=== PATIENT | male | born 1965 | race Caucasian/White ===

== ENCOUNTER 2021-05-05 07:31 | Emergency (ER) | payer MEDICAID, SELFPAY ==
[2021-05-05 07:33] VITALS: BP 185/120; PULSE 84; RESP 16; TEMP 36.6; O2SAT 98; BMI 22.6
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
--- NOTE | 2021-05-05 08:22 | RAD_ITS ---
STUDY: X-RAY - LEFT FOOT CLINICAL: Male, 55 years old. Trauma. TECHNIQUE: 3 view(s) of the foot. COMPARISON: None. FINDINGS: Acute dorsal talus and navicular avulsion fractures (best seen on the lateral projection). Acute obliquely oriented comminuted minimally displaced fractures at the third, fourth and fifth metatarsals. Acute nondisplaced cuboid fracture. 2 mm subluxation at the region of the second tarsometatarsal joint. No yuly dislocation. No acute cortical destruction. Flexed third, fourth and fifth distal interphalangeal joints. Moderate midfoot soft tissue swelling. RAD/Foot min 3 Views IMPRESSION: Acute dorsal talus and navicular avulsion fractures Acute minimally displaced third, fourth and fifth metatarsal fractures Acute nondisplaced cuboid fracture Second tarsometatarsal 2 mm subluxation (correlate midfoot instability and consider CT/MRI evaluations) Moderate midfoot swelling Electronically Signed: Booker Alonso DO at 8:45 EDT Tel , Service support ,
--- NOTE | 2021-05-05 10:21 | NURSING ---
[address] DR MONTAÑO PAGED
--- NOTE | 2021-05-05 10:44 | CT_ITS ---
STUDY: CT LEFT FOOT REASON FOR EXAM: Male, 55 years old. Multiple foot fractures RADIATION DOSAGE (If Supplied By Facility): CTDIvol = ( 15.35 ) mGy, DLP = ( 353.76 ) mGycm TECHNIQUE: Thin section transaxial imaging of the foot was obtained, with sagittal and coronal reconstructed images. Individualized dose optimization techniques were used for this CT. COMPARISON: Comparison is made with prior radiographs done earlier today. FINDINGS: There is evidence of a tiny avulsion fracture along the dorsal aspect of the anterior talus and navicular bone. There is evidence of a plantar spur. Nondisplaced fracture along the posterior aspect of the cuboid bone. Normal visualized tibiotalar, subtalar, talonavicular, calcaneocuboid, tarsal and tarsometatarsal articulations. Nondisplaced, fracture of the proximal and midportion of the fourth metatarsal as well as nondisplaced oblique fracture of the midportion of the third metatarsal. Nondisplaced transverse fracture at the base of the fifth metatarsal. Normal metatarsophalangeal joint of the great toe. Normal tibial and fibular sesamoid bones. Normal interphalangeal joint of the great toe. Normal phalanges of the great toe. Normal second through fifth metatarsophalangeal joints. Normal interphalangeal joints and phalanges of the lesser toes. Soft tissue swelling. CT/Extremity Lower without Contra IMPRESSION: Fractures of the third fourth and fifth metatarsals as described. Tiny avulsion fracture along the dorsal aspect of the anterior talus and navicular bone. Nondisplaced fracture of the cuboid bone. Electronically Signed: Braxton Quintana MD at 11:06 EDT , Service support ,
[2021-05-05 11:16] VITALS: BP 148/69; PULSE 84; RESP 15; O2SAT 95
== END 2021-05-05 11:17 | disposition home or self-care (01) ==
PROVIDERS: Emergency Provider Emergency Medicine; PCP Internal Medicine
DX: S92.902A Unspecified fracture of left foot, initial encounter for closed fracture (principal); F17.210 Nicotine dependence, cigarettes, uncomplicated; X58.XXXA Exposure to other specified factors, initial encounter
CPT/HCPCS: 73630; 73700; 99285

== ENCOUNTER 2021-12-14 19:25 | Emergency (ER) | payer MEDICAID, SELFPAY ==
[2021-12-14 19:25] VITALS: BP 166/98; PULSE 97; RESP 19; TEMP 36.7; O2SAT 98; BMI 23.3
--- NOTE | 2021-12-14 19:32 | EDS_ITS ---
HPI History of Present Illness Chief Complaint: Overdose Informant: patient Onset/Context/Timing Onset: Today Context: Sudden Onset Quality: Unresponsive Location: Generalized Worsened by: Nothing Relieved by: Narcan Associated Symptoms Associated Symptoms: Negative for vomiting*, diarrhea*, fever*, rash*, seizure, tremor, palpatations, suicidal ideation and homicidal ideation Narrative Narrative: Patient presents after overdose of heroin tonight. Patient states this occurred approximately 1 hour prior to arrival. Patient states he uses between $10 and $20 of heroin per day. EMS administered Narcan which helped. Patient denies any nausea or vomiting. Patient denies any diarrhea. Patient denies any fevers or chills. Patient denies any seizures. Patient denies any suicidal or homicidal ideations. Patient denies any chest pain or shortness of breath. [facility] Medical History Anxiety Depression GERD (gastroesophageal reflux disease) Heroin abuse Methamphetamine abuse Smoker Substance abuse Home Medications omeprazole 40 mg PO DAILY 12/14/21 [History Last Taken Unknown] Allergy/AdvReac Type Severity Reaction Status Date / Time No Known Allergies Allergy Verified 12/14/21 19:30 Surgical History H/O neck surgery Social History Smoking Status: Current every day smoker tobacco type: cigarettes ROS ROS ED Constitutional Constitutional ED: Denies chills or fever(s) Eyes Eyes: Denies blurry vision or change in vision ENT ENT ED: Denies rhinorrhea or sore throat Cardiovascular Cardiovascular: Denies chest pain or palpitations Respiratory/Chest Respiratory/Chest: Denies cough or dyspnea Gastrointestinal Gastrointestinal: Denies nausea or vomiting Genitourinary Genitourinary ED: Denies dysuria or hematuria Musculoskeletal Musculoskeletal: Reports back pain; Denies neck pain Integumentary Denies abscess or rash Neurologic Neurologic: Denies headache(s) or weakness Allergic/Immunologic Allergic/Immunologic ED: Denies mouth swelling or urticaria EXAM Physical Exam Const Vital Signs: 12/14/21 19:25 12/14/21 20:25 12/14/21 20:53 Temperature 98.1 F Temperature Source Temporal Pulse Rate 97 61 58 L Respiratory Rate 19 H 19 H 17 Blood Pressure 166/98 H 147/89 H 144/87 H Blood Pressure Mean 120 108 106 Pulse Ox 98 98 98 Oxygen Delivery Method Room Air Room Air Room Air Positive well nourished and well developed General Appearance ED: well developed and NAD HEENT Reports moist mucous membranes Neck supple and no JVD Chest Wall inspection of chest normal and palpation of chest normal Resp normal respiratory effort and clear to auscultation bilaterally Cardio regular rate and regular rhythm GI soft to palpation, non-tender, non-distended and no masses Neuro oriented x3, CN's II-XII intact bilaterally and no sensory deficits noted Sensorium / Orientation: alert Motor Exam: strength 5/5 throughout Psych mental status grossly normal, denies hallucinations, denies homicidal ideation and denies suicidal ideation MDM MDM MDM Narrative Medical decision making narrative: Portable 1 view chest x-ray was obtained. On my interpretation, lung torre are clear. There is normal cardiac silhouette. Bony thorax is normal. There is no acute process noted. Radiologist also interpreted the x-ray and agrees. CBC and comprehensive metabolic profile were obtained and were within normal limits. Patient was observed here in the emergency department for over 2 hours. Patient had no further episodes of hypoxia or respiratory depression. Patient was advised of his findings. Patient was given a referral for 180. Patient was also instructed to follow-up with his primary care physician in 5 to 7 days for reevaluation. Patient understood and was agreeable with the plan. All questions were answered. Lab Data Attestation: I reviewed the patient's lab results. Labs: Laboratory Results - last 24 hr 12/14/21 12/14/21 19:47 19:47 WBC 5.5 RBC 4.94 Hgb 13.9 Hct 41.6 MCV 84.2 MCH 28.1 MCHC 33.4 RDW Std Deviation 39.4 RDW Coeff of Arnulfo 12.9 Plt Count 289 MPV 9.1 Immature Gran % (Auto) 0.200 Neut % (Auto) 47.5 Lymph % (Auto) 37.5 [place] % (Auto) 10.1 H Eos % (Auto) 3.4 Baso % (Auto) 1.3 H Absolute Neuts (auto) 2.6 Absolute Lymphs (auto) 2.07 Nucleated RBC % 0 Sodium 140 Potassium 3.7 Chloride 106 Carbon Dioxide 29.0 Anion Gap 5 BUN 12 Creatinine 0.72 Estim Creat Clear Calc 98.47 Est GFR (MDRD) Af Amer 145 Est GFR (MDRD) Non-Af 120 BUN/Creatinine Ratio 16.7 Glucose 112 H Calcium 8.9 Total Bilirubin 0.30 AST 28 ALT 44 Alkaline Phosphatase 75 Total Protein 7.3 Albumin 3.5 Globulin 3.8 Albumin/Globulin Ratio 0.9 Radiography Diagnostic Testing: Clinical Impression(s) from Imaging Studies Chest X-Ray 12/14/21 19:53 IMPRESSION: No acute radiographic abnormalities. Electronically Signed: Jono Man MD at 20:04 EDT , Discharge Plan Triage Chief Complaint: Overdose ED Provider: Booker Cruz Dx/Rx/DC Orders Clinical Impression: Opiate overdose, Opiate abuse, continuous Instructions: ED Opiate Abuse, ED Overdose, Opiate Prescriptions: No Action omeprazole 40 mg capsule,delayed release(DR/EC) 40 mg PO DAILY RF: 0 Primary Care Provider: Allison Jane Referrals: Allison Jane MD [Primary Care Provider] - 3-5 Days [facility] [STAFF PHYSICIAN] - 3-5 Days Disposition Disposition: Home, Self Care
--- NOTE | 2021-12-14 19:53 | RAD_ITS ---
INDICATION: Dyspnea EXAMINATION/TECHNIQUE: X-RAY - XR Chest 1 View COMPARISON: None. FINDINGS: The lungs are clear. Tortuous and calcified thoracic aorta. The heart is not enlarged. No pleural effusion or pneumothorax. Degenerative changes of the thoracic spine. RAD/Chest 1 View (Portable) IMPRESSION: No acute radiographic abnormalities. Electronically Signed: Jono Man MD at 20:04 EDT ,
[2021-12-14 19:55] LABS: Absolute Lymphocyte Count 2.07 X10^3/uL (0.83-4.51); Absolute Neutrophil Count 2.6 X10^3/uL (2.0-7.7); Basophil# 0.07 X10^3/uL; Basophil% 1.3 % (0-1); Eosinophil# 0.19 X10^3/uL; Eosinophils% 3.4 % (0-5); Hematocrit 41.6 % (40-54); Hemoglobin 13.9 g/dL (13.0-16.5); Lymphocyte # 2.07 X10^3/ul (0.83-4.51); Lymphocyte % 37.5 % (19-41); Mean Corp Hgb Conc 33.4 g/dL (32-36); Mean Corpuscular Hgb 28.1 pg (27.0-32.0); Mean Corpuscular Volume 84.2 fL (80-94); Mean Platelet Vol. 9.1 fl (6.2-12.0); Monocyte# 0.56 X10^3/uL; Monocyte% 10.1 % (0-10); NRBC Flagged by Analyzer 0 % (0-5); Neutrophil # 2.62 X10^3/uL (2.7-7.7); Neutrophil % 47.5 % (47-70); Platelet Count 289 K/mm3 (150-450); RBC Distribution Width CV 12.9 % (11.6-14.6); RBC Distribution Width SD 39.4 fl (35.1-43.9); Red Blood Count 4.94 M/mm3 (4.6-6.2); White Blood Count 5.5 K/mm3 (4.4-11.0)
[2021-12-14 20:25] VITALS: BP 147/89; PULSE 61; RESP 19; O2SAT 98
[2021-12-14 20:27] LABS: ALB/GLOB Ratio 0.9 RATIO (0.9-2.4); AST(SGOT) 28 U/L (15-37); Alanine Aminotransfer ALT/SGPT 44 U/L (16-61); Albumin, Serum 3.5 g/dL (3.2-5.0); Alkaline Phosphatase 75 U/L (45-117); Anion Gap 5 (5-15); BUN 12 mg/dL (7-18); BUN/Creat Ratio 16.7 RATIO (10-20); Calcium,Total 8.9 mg/dL (8.5-10.1); Chloride 106 mmol/L (98-107); Creatinine, Serum 0.72 mg/dL (0.70-1.30); EST Glomerular Filtration Rate 120 mL/min (>60); Est Glom Filt Rate - Afr Amer 145 mL/min (>60); Estimated Creatinine Clearance 98.47 ml/min; Globulin 3.8 g/dL (2.2-4.2); Glucose 112 mg/dL (74-106); Potassium 3.7 mmol/L (3.5-5.1); Protein, Total 7.3 g/dL (6.4-8.2); Sodium Level 140 mmol/L (136-145)
[2021-12-14 20:53] VITALS: BP 144/87; PULSE 58; RESP 17; O2SAT 98
[2021-12-14 21:41] VITALS: O2SAT 100
== END 2021-12-14 21:42 | disposition home or self-care (01) ==
PROVIDERS: Emergency Provider Emergency Medicine; PCP Internal Medicine; Visit Provider Emergency Medicine
DX: T40.1X1A Poisoning by heroin, accidental (unintentional), initial encounter (principal); F11.10 Opioid abuse, uncomplicated; F17.210 Nicotine dependence, cigarettes, uncomplicated; Z79.899 Other long term (current) drug therapy
CPT/HCPCS: 71045; 80053; 85025; 99285

== ENCOUNTER 2021-12-18 11:15 | Observation (INO) | payer MEDICAID, SELFPAY ==
[2021-12-18 11:15] VITALS: BP 135/85; PULSE 84; RESP 16; TEMP 37.1; O2SAT 100; BMI 21.7
[2021-12-18 12:03] LABS: Absolute Lymphocyte Count 0.43 X10^3/uL (0.83-4.51); Absolute Neutrophil Count 3.6 X10^3/uL (2.0-7.7); Basophil# 0.04 X10^3/uL; Eosinophil# 0.02 X10^3/uL; Eosinophils% 0.5 % (0-5); Hematocrit 44.2 % (40-54); Hemoglobin 14.8 g/dL (13.0-16.5); Lymphocyte # 0.43 X10^3/ul (0.83-4.51); Lymphocyte % 10.3 % (19-41); Mean Corp Hgb Conc 33.5 g/dL (32-36); Mean Corpuscular Volume 83.7 fL (80-94); Mean Platelet Vol. 9.2 fl (6.2-12.0); Monocyte# 0.03 X10^3/uL; Monocyte% 0.7 % (0-10); NRBC Flagged by Analyzer 0 % (0-5); Neutrophil # 3.63 X10^3/uL (2.7-7.7); Neutrophil % 87.3 % (47-70); POSITIVE DIFFERENTIAL YES; Platelet Count 249 K/mm3 (150-450); RBC Distribution Width CV 12.9 % (11.6-14.6); RBC Distribution Width SD 39.3 fl (35.1-43.9); Red Blood Count 5.28 M/mm3 (4.6-6.2); White Blood Count 4.2 K/mm3 (4.4-11.0)
[2021-12-18 12:07] LABS: Differential Indicated SCAN CRITERIA MET
[2021-12-18 12:21] LABS: ALB/GLOB Ratio 0.8 RATIO (0.9-2.4); AST(SGOT) 41 U/L (15-37); Alanine Aminotransfer ALT/SGPT 50 U/L (16-61); Albumin, Serum 3.5 g/dL (3.2-5.0); Alkaline Phosphatase 84 U/L (45-117); Anion Gap 7 (5-15); BUN 10 mg/dL (7-18); BUN/Creat Ratio 15.8 RATIO (10-20); Calcium,Total 9.1 mg/dL (8.5-10.1); Chloride 105 mmol/L (98-107); Creatinine, Serum 0.63 mg/dL (0.70-1.30); EST Glomerular Filtration Rate 139 mL/min (>60); Est Glom Filt Rate - Afr Amer 168 mL/min (>60); Estimated Creatinine Clearance 108.14 ml/min; Globulin 4.2 g/dL (2.2-4.2); Glucose 103 mg/dL (74-106); Potassium 3.3 mmol/L (3.5-5.1); Protein, Total 7.7 g/dL (6.4-8.2); Sodium Level 138 mmol/L (136-145)
[2021-12-18 12:33] LABS: Alcohol, Blood (Medical)-Serum < 3.0 mg/dL
[2021-12-18 12:34] LABS: Differential Comment SCANNED
--- NOTE | 2021-12-18 12:38 | EDS_ITS ---
HPI History of Present Illness Chief Complaint: Substance Abuse Narrative Narrative: 56-year-old male presenting for opioid detox. He states he uses fentanyl and heroin. He also states at times he uses methamphetamine. Patient does not use alcohol. He states his last use was yesterday. He states currently he feels kind of rundown and cold. He states he has a past medical history of high blood pressure and GERD. [facility] Medical History Anxiety Depression GERD (gastroesophageal reflux disease) Heroin abuse Methamphetamine abuse Smoker Substance abuse Home Medications omeprazole 40 mg capsule,delayed release 40 mg PO DAILY stomach 12/14/21 [History Last Taken 12/16/21] bupropion HCl 150 mg 24 hr tablet, extended release 150 mg PO DAILY depression 12/18/21 [History Last Taken Unknown] gabapentin 300 mg capsule 300 mg PO TIDCM nerve pain 12/18/21 [History Last Taken 12/17/21] Allergy/AdvReac Type Severity Reaction Status Date / Time No Known Allergies Allergy Verified 12/18/21 13:18 Surgical History H/O neck surgery Social History Smoking Status: Current every day smoker tobacco type: cigarettes ROS ROS ED Constitutional Constitutional ED: Reports chills; Denies fever(s) or sweats Eyes Eyes: Denies blurry vision or change in vision ENT ENT ED: Denies ear pain or sore throat Cardiovascular Cardiovascular: Denies chest pain, palpitations or racing heartbeat Respiratory/Chest Respiratory/Chest: Denies cough, dyspnea or sputum Gastrointestinal Gastrointestinal: Denies abdominal pain, constipation, diarrhea, nausea or vomiting Genitourinary Genitourinary ED: Denies dysuria, hematuria or urinary frequency Musculoskeletal Musculoskeletal: Denies arthralgias, myalgias or neck pain Integumentary Denies abscess, Abrasions or rash Neurologic Neurologic: Denies headache(s), paresthesias or weakness Psychiatric Psychiatric: Denies anxiety, depression, suicidal ideation or suicidal thoughts Endocrine Endocrinology: Denies polydipsia or polyuria EXAM Physical Exam Const Vital Signs: 12/18/21 11:15 Temperature 98.7 F Temperature Source Temporal Pulse Rate 84 Respiratory Rate 16 Blood Pressure 135/85 H Blood Pressure Mean 101 Pulse Ox 100 Oxygen Delivery Method Room Air Positive well nourished and no apparent distress General Appearance ED: active and cooperative HEENT Reports normocephalic and head/scalp atraumatic normocephalic Eyes PERRL and EOMs intact bilaterally Pupil: PERRL and accommodation reflex normal Neck full ROM General: normal visual inspection Chest Wall inspection of chest normal Resp normal respiratory effort and normal air movement Auscultation: clear to auscultation bilaterally Cardio regular rate and regular rhythm GI normal to inspection, nondistended, normoactive bowel sounds Rectal Exam: deferred Extremity normal to inspection Neuro oriented x3, CN's II-XII intact bilaterally, moves all extremities, no focal motor deficits and no sensory deficits noted Sensorium / Orientation: awake, alert, oriented to person, oriented to place and oriented to time Motor Exam: strength 5/5 throughout Psych mental status grossly normal and thought process normal Appearance: grossly normal Attitude: calm Speech: normal speech Thought Content: normal thought content Skin no rashes or lesions noted MDM MDM MDM Narrative Medical decision making narrative: Patient presenting for opioid detox. He states that he feels somewhat rundown and feels like he is cold currently. Last use of drugs was yesterday. CBC shows that he is leukopenic and lymphopenic. This is new from his previous visit on the . He slightly hypokalemic on his CMP. LFTs within normal limits with exception of an AST of 41. EtOH negative. I did send for a COVID test. I spoke with the hospitalist for admission for opioid detox. He will be transferred when a bed was available. Impression: 1. Opioid abuse 2. Presentation for opioid detox 3. Leukopenia 4. Lymphopenia 5. Hypokalemia Lab Data Attestation: I reviewed the patient's lab results. Labs: Laboratory Results - last 24 hr 12/18/21 12/18/21 12/18/21 11:45 11:45 11:45 WBC 4.2 L RBC 5.28 Hgb 14.8 Hct 44.2 MCV 83.7 MCH 28.0 MCHC 33.5 RDW Std Deviation 39.3 RDW Coeff of Arnulfo 12.9 Plt Count 249 MPV 9.2 Immature Gran % (Auto) 0.200 Neut % (Auto) 87.3 H Lymph % (Auto) 10.3 L [place] % (Auto) 0.7 Eos % (Auto) 0.5 Baso % (Auto) 1.0 Absolute Neuts (auto) 3.6 Absolute Lymphs (auto) 0.43 L Nucleated RBC % 0 Differential Comment SCANNED Diff Path Review October Sodium 138 Potassium 3.3 L Chloride 105 Carbon Dioxide 26.0 Anion Gap 7 BUN 10 Creatinine 0.63 L Estim Creat Clear Calc 108.14 Est GFR (MDRD) Af Amer 168 Est GFR (MDRD) Non-Af 139 BUN/Creatinine Ratio 15.8 Glucose 103 Calcium 9.1 Total Bilirubin 0.70 AST 41 H ALT 50 Alkaline Phosphatase 84 Total Protein 7.7 Albumin 3.5 Globulin 4.2 Albumin/Globulin Ratio 0.8 L Ethyl Alcohol < 3.0 Discharge Plan Disposition Disposition: Acute Care Hospital [facility] Discharge Date/Time: 12/18/21 12:57
[2021-12-18 12:47] VITALS: BP 146/86; PULSE 84; RESP 16; TEMP 36.7; O2SAT 100
[2021-12-18 13:16] VITALS: BMI 21.1
--- NOTE | 2021-12-18 13:39 | HP.PCM.HOS_ITS ---
[facility] - General General Date of Admission: 12/18/21 Date of Service: 12/18/21 Chief Complaint: Severe opioid withdrawal syndrome. HPI Narrative CALDERON PRIETO, is a 56 M came to ED for severe opioid alcohol withdrawal symptoms shaking, tremors, restlessness, cold/snuffles, generalized muscle ache, tossing on the bed. Patient states he uses IV fentanyl, 1/4 to 1/2 g with heroin mixed with methamphetamine. His last use was yesterday. Patient uses cocktail therefore unclear what is its content. Not sure about mixed crack cocaine, ecstasy or bath salts. Smokes cigarettes half pack per day. Patient also having weird thoughts, delusions, disorganized thought and behavior suggestive of psychotic symptoms. Denies hallucination auditory visual or tactile. NO Illusion. Denies suicidal ideation thought or attempt. No homicidal thoughts. Detailed history not obtainable as patient having severe withdrawal symptoms. [facility] Medical History (Updated 12/18/21 @ 13:[address] Braydon Ribera MD) Anxiety Depression GERD (gastroesophageal reflux disease) Heroin abuse Methamphetamine abuse Smoker Substance abuse Home Medications omeprazole 40 mg capsule,delayed release 40 mg PO DAILY stomach 12/14/21 [History Last Taken 12/16/21] bupropion HCl 150 mg 24 hr tablet, extended release 150 mg PO DAILY depression 12/18/21 [History Last Taken Unknown] gabapentin 300 mg capsule 300 mg PO TIDCM nerve pain 12/18/21 [History Last Taken 12/17/21] Allergy/AdvReac Type Severity Reaction Status Date / Time No Known Allergies Allergy Verified 12/18/21 13:18 Surgical History (Updated 12/18/21 @ 13:31 by Odette Brooks) H/O hernia repair H/O neck surgery Social History Smoking Status: Current every day smoker tobacco type: cigarettes ROS ROS Narrative 14 ROS are limited due to severe withdrawal symptoms including disorganized thought, restlessness tossing on the bed. Constitutional: Generalized muscle aches and pain. HEENT: Cold symptoms, runny nose. Reports systems reviewed and no addt'l complaints, except as documented Respiratory/Chest: Denies chest pain, shortness of breath at rest or with exertion Gastrointestinal: Denies coffee ground emesis, hematemesis or vomiting Genitourinary: Denies burning urination Musculoskeletal: Diffuse muscle aches and joint pain. Neurologic: Denies seizure-like activity. Psychiatric: Disorganized thought, restlessness, impulsiveness. skin: No ulcer. No rash Endocrinology: Reports systems reviewed and no addt'l complaints, except as documented Hematologic/Lymphatic: Reports systems reviewed and no addt'l complaints, except as documented Rest 14 ROS are negative except as mentioned in HPI Vital Signs Vital Signs Vital Signs: 12/18/21 11:15 12/18/21 12:47 Temperature 98.7 F 98.1 F Temperature Source Temporal Oral Pulse Rate 84 84 Respiratory Rate 16 16 Blood Pressure 135/85 H 146/86 H Blood Pressure Mean 101 106 Pulse Ox 100 100 Oxygen Delivery Method Room Air Room Air Weight Weight: 126 lb 12.253 oz Body Mass Index (BMI) 21.1 Physical Exam Narrative General: Awake, hyperalert, disoriented. Crawled in position. BMI 21.1 kg/min risk HEENT: Atraumatic, PERRLA, EOMI, Normocephalic Oral: Oral mucosa dry. No Gingival or Mucosal Lesions/ Ulcerations Neck: Supple, No JVD, Negative Carotid Bruits Lungs: Air entry diminished in bilateral lung bases. No crepitation/rhonchi Cardiovascular: Regular rate, Regular Rhythm, Normal S1, Normal S2, No murmurs Abdomen: Bowel Sounds Present, Soft, Non Tender, Non-Distended : No renal angle tenderness. No suprapubic tenderness. Extremities: No edema, Capillary Refill Less than 3 Seconds Skin: No rashes, No breakdown Musculoskeletal: Diffuse muscle tenderness. Moderate muscle atrophy of extremities. Neurological: Cranial nerves II-XII grossly intact, DTR 2+/4 Psych/Mental Status: Restless. Disorganized thought, pressured speech Results Lab / Micro Data Result Diagrams: 12/18/21 11:45 12/18/21 11:45 Labs: Laboratory Results - last 24 hr 12/18/21 11:45: WBC 4.2 L, RBC 5.28, Hgb 14.8, Hct 44.2, MCV 83.7, MCH 28.0, MCHC 33.5, RDW Std Deviation 39.3, RDW Coeff of Arnulfo 12.9, Plt Count 249, MPV 9.2, Immature Gran % (Auto) 0.200, Neut % (Auto) 87.3 H, Lymph % (Auto) 10.3 L, [place] % (Auto) 0.7, Eos % (Auto) 0.5, Baso % (Auto) 1.0, Absolute Neuts (auto) 3.6, Absolute Lymphs (auto) 0.43 L, Nucleated RBC % 0, Differential Comment SCANNED, Diff Path Review October foll 12/18/21 11:45: Sodium 138, Potassium 3.3 L, Chloride 105, Carbon Dioxide 26.0, Anion Gap 7, BUN 10, Creatinine 0.63 L, Estim Creat Clear Calc 108.14, Est GFR (MDRD) Af Amer 168, Est GFR (MDRD) Non-Af 139, BUN/Creatinine Ratio 15.8, Glucose 103, Calcium 9.1, Total Bilirubin 0.70, AST 41 H, ALT 50, Alkaline Phosphatase 84, Total Protein 7.7, Albumin 3.5, Globulin 4.2, Albumin/Globulin Ratio 0.8 L 12/18/21 11:45: Ethyl Alcohol < 3.0 Micro: Microbiology 12/18/21 12:47 Nasal Secretion SARS-CoV-2 Antigen (Rapid) - Final Assessment & Plan Assessment/Plan (1) Acute hyperactive opioid withdrawal delirium: PLAN: 1. Acute opioid withdrawal syndrome with history of chronic opioid use, dependence and tolerance: Patient is being admitted on Med[facility]. Watch for seizure, hallucinations or other psychotic symptoms. CINA and COW monitoring. Started on buprenorphine along with other adjunctive medications as needed for symptom control as per protocol. Needs close monitoring. 2. Methamphetamine use and dependence: Patient is mixed with IV fentanyl and heroin. 3. Chronic smoking cigarettes with nicotine dependence: On nicotine patch Patient advised cessation of opioids, methamphetamine and cigarette smoking. 4. Anxiety and depression: Patient on Wellbutrin at home. Will hold it as it lowers the threshold of seizure. 5. GERD: Started on PPI VTE prophylaxis, moderate risk Eliquis 2.5 mg p.o. twice daily Patient is not in the right mental state to talk about advanced directive. Patient is also high risk for viral hepatitis B, C and HIV. Patient is not in normal mental state to talk about history. Patient needs testing for viral hepatitis and HIV as an outpatient. Charges/Coding Visit Charges Inpatient E&M: 56789 Init Hosp L3
[2021-12-18 13:42] VITALS: BP 107/88; PULSE 84; RESP 18; TEMP 36.9; O2SAT 99
[2021-12-18] MEDS: Methocarbamol 750 MG Tablet 1500 MG PO (13:52)
[2021-12-18] MEDS: Gabapentin 300 MG Capsule PO ×2 (13:52→17:13)
[2021-12-18] MEDS: Pantoprazole Sodium 40 MG Tablet PO (13:52)
[2021-12-18] MEDS: Buprenorphine HCl 2 MG TAB.SUBL SL ×2 (14:09→22:30)
[2021-12-18 14:24] LABS: International Normalized Ratio 1.1; Prothrombin Time (Protime)PT. 14.1 SECONDS (11.7-14.9)
[2021-12-18] MEDS: hydrOXYzine PAM 25 MG Capsule 50 MG PO (15:56)
[2021-12-18] MEDS: cloNIDine HCl 0.1 MG Tablet PO (15:57)
[2021-12-18 16:24] LABS: Amphetamine Urine VISTA POSITIVE (<1000 ng/mL); Barbiturate Urine VISTA NEGATIVE (< 200 ng/mL); Benzodiazepine Urine VISTA NEGATIVE (< 200 ng/mL); Cocaine Urine VISTA NEGATIVE (< 300 ng/mL); Ecstacy Urine VISTA NEGATIVE (< 500 ng/mL); Methadone Urine VISTA NEGATIVE (< 300 ng/mL); PCP Urine VISTA NEGATIVE (< 25 ng/mL); THC Urine VISTA NEGATIVE (< 50 ng/mL); Vista UDS pH Range 6
[2021-12-18 17:08] LABS: Magnesium 2.1 mg/dL (1.6-2.6)
[2021-12-18 17:11] VITALS: BP 145/88; PULSE 70; RESP 14; TEMP 36.6; O2SAT 98
[2021-12-18] MEDS: Potassium Chloride Oral Tablet 20 MEQ 40 MEQ PO ×2 (17:13→22:29)
[2021-12-18] MEDS: APIXABAN 2.5 MG TABLET PO (22:30)
[2021-12-18 23:00] VITALS: BP 136/84; PULSE 55; RESP 18; TEMP 36.7; O2SAT 99
[2021-12-19 06:00] VITALS: BP 120/77; PULSE 63; RESP 18; TEMP 37.1; O2SAT 97
[2021-12-19] MEDS: Buprenorphine HCl 2 MG TAB.SUBL SL ×3 (06:03→22:05)
[2021-12-19 09:13] VITALS: BP 116/73; PULSE 72; RESP 16; TEMP 36.7; O2SAT 96
[2021-12-19] MEDS: Gabapentin 300 MG Capsule PO ×3 (09:21→17:19)
[2021-12-19] MEDS: Pantoprazole Sodium 40 MG Tablet PO (09:21)
[2021-12-19 09:53] LABS: ALB/GLOB Ratio 0.8 RATIO (0.9-2.4); AST(SGOT) 34 U/L (15-37); Alanine Aminotransfer ALT/SGPT 50 U/L (16-61); Albumin, Serum 3.2 g/dL (3.2-5.0); Alkaline Phosphatase 70 U/L (45-117); Anion Gap 4 (5-15); BUN 10 mg/dL (7-18); BUN/Creat Ratio 16.8 RATIO (10-20); Calcium,Total 8.8 mg/dL (8.5-10.1); Chloride 111 mmol/L (98-107); EST Glomerular Filtration Rate 149 mL/min (>60); Est Glom Filt Rate - Afr Amer 180 mL/min (>60); Estimated Creatinine Clearance 110.47 ml/min; Globulin 4.2 g/dL (2.2-4.2); Glucose 104 mg/dL (74-106); Potassium 4.1 mmol/L (3.5-5.1); Protein, Total 7.4 g/dL (6.4-8.2); Sodium Level 141 mmol/L (136-145)
--- NOTE | 2021-12-19 10:20 | PCM.PN.HOSP ---
Subjective Subjective Follow-up on acute opioid withdrawal: Patient was seen and examined. No acute events overnight. He denied any new complaint. He feels improved. Objective Data Objective Data Vital Signs: Vital Signs Temp Pulse Resp BP Pulse Ox 98.1 F 72 16 116/73 96 12/19/21 09:13 12/19/21 09:13 12/19/21 09:13 12/19/21 09:13 12/19/21 09:13 Oxygen Delivery Method Room Air Weight: 57.5 kg Body Mass Index (BMI) 21.1 Intake & Output: Intake and Output for Last 24 Hours 12/17/21 12/18/21 12/19/21 23:59 23:59 23:59 Intake Total 800 / 800 Balance 800 / 800 Medical Nutrition Assessment Dietitian: Malnutrition Criteria Met Start: 12/18/21 16:22 Freq: Status: Active Protocol: Document 12/18/21 16:22 RMA (Rec: 12/18/21 16:22 RMA [id number]) Nutrition Malnutrition Evidence of Malnutrition Exists Yes Malnutrition (severe): Social/Behavioral/ Environmental Evidenced By Suboptimal Energy Intake ( Severe),Weight Loss (Severe) Clinical Problem Chronic Disease or Condition Related Malnutrition Etiology Severe protein-calorie malnutrition in the context of social circumstance related to substance abuse and inadequate oral intake Signs/Symptoms as evidenced by ~9-10% wt loss x past 6 months and PO meeting less than 50% estimated nutrition needs x past 3 months Status Active Problem Recommendation Dietitian Recommendations/Changes Continue Regular diet with snacks between meals as ordered. Continue 120 ml ensure enlive with medpass 4 times per day. Will add 240ml ensure clear with breakfast and magic cup BID w/ lunch and dinner for extra calories/protein/ nutrients as tolerated. Lab / Micro Data Result Diagrams: 12/18/21 11:45 12/19/21 09:19 Labs: Laboratory Results - last 24 hr 12/18/21 11:45: WBC 4.2 L, RBC 5.28, Hgb 14.8, Hct 44.2, MCV 83.7, MCH 28.0, MCHC 33.5, RDW Std Deviation 39.3, RDW Coeff of Arnulfo 12.9, Plt Count 249, MPV 9.2, Immature Gran % (Auto) 0.200, Neut % (Auto) 87.3 H, Lymph % (Auto) 10.3 L, [place] % (Auto) 0.7, Eos % (Auto) 0.5, Baso % (Auto) 1.0, Absolute Neuts (auto) 3.6, Absolute Lymphs (auto) 0.43 L, Nucleated RBC % 0, Differential Comment SCANNED, Diff Path Review May foll 12/18/21 11:45: Sodium 138, Potassium 3.3 L, Chloride 105, Carbon Dioxide 26.0, Anion Gap 7, BUN 10, Creatinine 0.63 L, Estim Creat Clear Calc 108.14, Est GFR (MDRD) Af Amer 168, Est GFR (MDRD) Non-Af 139, BUN/Creatinine Ratio 15.8, Glucose 103, Calcium 9.1, Total Bilirubin 0.70, AST 41 H, ALT 50, Alkaline Phosphatase 84, Total Protein 7.7, Albumin 3.5, Globulin 4.2, Albumin/Globulin Ratio 0.8 L 12/18/21 11:45: Ethyl Alcohol < 3.0 12/18/21 11:45: Magnesium 2.1 12/18/21 14:00: PT 14.1, INR 1.1 12/18/21 15:39: Urine Opiates Screen NEGATIVE, Urine Methadone Screen NEGATIVE, Ur Barbiturates Screen NEGATIVE, Ur Phencyclidine Scrn NEGATIVE, Ur Amphetamines Screen POSITIVE H, MDMA (Ecstasy) Screen NEGATIVE, U Benzodiazepines Scrn NEGATIVE, Urine Cocaine Screen NEGATIVE, U Cannabinoids Screen NEGATIVE, Ur Drug Screen Comment 12/19/21 09:19: Sodium 141, Potassium 4.1, Chloride 111 H, Carbon Dioxide 26.0, Anion Gap 4 L, BUN 10, Creatinine 0.60 L, Estim Creat Clear Calc 110.47, Est GFR (MDRD) Af Amer 180, Est GFR (MDRD) Non-Af 149, BUN/Creatinine Ratio 16.8, Glucose 104, Calcium 8.8, Total Bilirubin 0.30, AST 34, ALT 50, Alkaline Phosphatase 70, Total Protein 7.4, Albumin 3.2, Globulin 4.2, Albumin/Globulin Ratio 0.8 L Micro: Microbiology 12/18/21 12:47 Nasal Secretion SARS-CoV-2 Antigen (Rapid) - Final Physical Exam Narrative Physical exam: General: Alert, Oriented x3, Cooperative, cachectic, evidence of severe malnutrition HEENT: Atraumatic Oral: Moist Mucosa Neck: Supple Lungs: Clear to auscultation Cardiovascular: HS I+II, regular, no murmurs Abdomen: Bowel Sounds Present, Soft, Non Tender Extremities: No edema Assessment & Plan Assessment/Plan (1) Acute opioid withdrawal: PLAN: Plan 1. Acute opioid withdrawal, last Cina score was 4 Continue on Subutex withdrawal protocol 2. Polysubstance use?methamphetamine/fentanyl/heroin use, advised to quit 3. Nicotine abuse, advised to quit, on replacement 4. Severe protein calorie malnutrition, BMI 21.1, corporate responsibility officer consulted, continue supplements 5. Anxiety/depression, Wellbutrin on hold, Will resume if patient is much improved tomorrow 6. GERD, continue on PPI 7. DVT PPx- Lovenox SC Charges/Coding Visit Charges Inpatient E&M: 76438 Subs Hosp L2
[2021-12-19] MEDS: Methocarbamol 750 MG Tablet 1500 MG PO ×2 (12:21→18:58)
[2021-12-19] MEDS: cloNIDine HCl 0.1 MG Tablet PO ×2 (12:21→22:09)
[2021-12-19 14:12] VITALS: BP 112/77; PULSE 62; RESP 14; TEMP 36.7; O2SAT 99
[2021-12-19 17:17] VITALS: BP 109/77; PULSE 69; RESP 16; TEMP 36.6; O2SAT 99
[2021-12-19 23:17] VITALS: BP 118/86; PULSE 70; RESP 16; TEMP 36.9; O2SAT 98
[2021-12-20 06:00] VITALS: BP 111/82; PULSE 66; RESP 16; TEMP 36.8; O2SAT 98
[2021-12-20] MEDS: Enoxaparin 40 MG/0.4 ML Syringe SC (06:55)
[2021-12-20] MEDS: Buprenorphine HCl 2 MG TAB.SUBL SL ×2 (06:55→13:57)
[2021-12-20 07:58] VITALS: BP 130/89; PULSE 56; RESP 14; TEMP 36.8; O2SAT 97
[2021-12-20] MEDS: Pantoprazole Sodium 40 MG Tablet PO (08:02)
[2021-12-20] MEDS: Gabapentin 300 MG Capsule PO ×3 (08:05→16:52)
--- NOTE | 2021-12-20 10:03 | PCM.PN.HOSP ---
Subjective Subjective Follow-up on acute opioid withdrawal: Patient was seen and examined.? No acute events overnight.? He denied any new complaints Objective Data Objective Data Vital Signs: Vital Signs Temp Pulse Resp BP Pulse Ox 98.2 F 56 L 14 130/89 H 97 12/20/21 07:58 12/20/21 07:58 12/20/21 07:58 12/20/21 07:58 12/20/21 07:58 Oxygen Delivery Method Room Air Weight: 57.5 kg Body Mass Index (BMI) 21.1 Intake & Output: Intake and Output for Last 24 Hours 12/18/21 12/19/21 12/20/21 23:59 23:59 23:59 Intake Total 800 / 800 1300 / 1300 Balance 800 / 800 1300 / 1300 Medical Nutrition Assessment Dietitian: Malnutrition Criteria Met Start: 12/18/21 16:22 Freq: Status: Active Protocol: Document 12/18/21 16:22 RMA (Rec: 12/18/21 16:22 RMA [id number]) Nutrition Malnutrition Evidence of Malnutrition Exists Yes Malnutrition (severe): Social/Behavioral/ Environmental Evidenced By Suboptimal Energy Intake ( Severe),Weight Loss (Severe) Clinical Problem Chronic Disease or Condition Related Malnutrition Etiology Severe protein-calorie malnutrition in the context of social circumstance related to substance abuse and inadequate oral intake Signs/Symptoms as evidenced by ~9-10% wt loss x past 6 months and PO meeting less than 50% estimated nutrition needs x past 3 months Status Active Problem Recommendation Dietitian Recommendations/Changes Continue Regular diet with snacks between meals as ordered. Continue 120 ml ensure enlive with medpass 4 times per day. Will add 240ml ensure clear with breakfast and magic cup BID w/ lunch and dinner for extra calories/protein/ nutrients as tolerated. Lab / Micro Data Result Diagrams: 12/18/21 11:45 12/19/21 09:19 Micro: Microbiology 12/18/21 12:47 Nasal Secretion SARS-CoV-2 Antigen (Rapid) - Final Physical Exam Narrative Physical exam: General: Alert, Oriented x3, Cooperative, cachectic, evidence of severe malnutrition HEENT: Atraumatic Oral: Moist Mucosa Neck: Supple Lungs: Clear to auscultation Cardiovascular: HS I+II, regular, no murmurs Abdomen: Bowel Sounds Present, Soft, Non Tender Extremities: No edema Assessment & Plan Assessment/Plan (1) Acute opioid withdrawal: PLAN: Plan 1. Acute opioid withdrawal, improving, last CINA score was 5 Continue on Subutex withdrawal protocol 2. Polysubstance use?methamphetamine/fentanyl/heroin use, advised to quit 3. Nicotine abuse, advised to quit, on replacement 4. Severe protein calorie malnutrition, BMI 21.1, senior research associate consulted, continue supplements 5. Anxiety/depression, resumed on Wellbutrin 6. GERD, continue on PPI 7. DVT PPx- Lovenox SC Disposition: Will DC in am if he remains stable Charges/Coding Visit Charges Inpatient E&M: 35652 Subs Hosp L2
--- NOTE | 2021-12-20 10:29 | ADDICTION ---
Pt was seen over the weekend by on-call addiction coordinator. Pt agreed to go to [facility] at [facility] and has an appointment on Monday.
[2021-12-20 13:36] LABS: Pathologist Review Reviewed
[2021-12-20 13:56] VITALS: BP 130/85; PULSE 68; RESP 12; TEMP 37.1; O2SAT 98
[2021-12-20] MEDS: hydrOXYzine PAM 25 MG Capsule 50 MG PO (18:42)
[2021-12-20] MEDS: Methocarbamol 750 MG Tablet 1500 MG PO (18:42)
[2021-12-20 20:16] VITALS: BP 143/86; PULSE 70; RESP 18; TEMP 36.4; O2SAT 99
[2021-12-21 02:53] VITALS: BP 141/95; PULSE 67; RESP 18; TEMP 36.4; O2SAT 97
[2021-12-21] MEDS: Buprenorphine HCl 2 MG TAB.SUBL SL (02:55)
[2021-12-21] MEDS: Enoxaparin 40 MG/0.4 ML Syringe SC (06:30)
--- NOTE | 2021-12-21 06:55 | DCINST_ITS ---
Discharge Instructions Diet Discharge Diet: No restrictions Activity Discharge Activity: Return to Normal Activity Weight Bearing Status: Weight bearing as tolerated Follow Up Care Test Results: Test results from this visit will be discussed in further detail at your follow- up appointment, if applicable. Discharge Plan Admission Admit Date/Time: 12/18/21 12:36 Primary Reason for Your Visit: Acute opiate withdrawal Attending Provider: Maryjane Carcamo Primary Care Provider: Allison Jane Consulting Providers: Braydon Ribera Discharge Orders/Prescriptions Prescriptions: New nicotine 21 mg/24 hr Patch 24 Hour 21 mg transdermal DAILY 30 Days Qty: 30 0RF Continued omeprazole 40 mg capsule,delayed release(DR/EC) 40 mg PO DAILY gabapentin 300 mg capsule 300 mg PO TIDCM Label Comments: TAKE 1 CAPSULE BY MOUTH 4 TIMES DAILY AT 8:30AM, 12 NOON, 2:30PM AND 9:30PM. bupropion HCl 150 mg tablet extended release 24 hr 150 mg PO DAILY Label Comments: TAKE 1 TABLET BY MOUTH ONCE DAILY Referrals / Follow Up: Allison Jane MD [Primary Care Provider] - In 1 Week Disposition Disposition (needs filled in before D/C Order can be placed): Home, Self Care
[2021-12-21 07:13] VITALS: BP 159/104; PULSE 68; RESP 14; TEMP 36.6; O2SAT 98
[2021-12-21] MEDS: Pantoprazole Sodium 40 MG Tablet PO (07:17)
[2021-12-21] MEDS: buPROPion (XL) 150 MG TABLET.XL PO (07:17)
[2021-12-21] MEDS: Gabapentin 300 MG Capsule PO (07:17)
--- NOTE | 2021-12-21 07:27 | DS.PCM_ITS ---
Providers Date of Admission: 12/18/21 Date of Discharge: 12/21/21 Primary Care Physician: Dr. Allison Jane MD Reason For Visit: acute opiate withdrawl Diagnosis Discharge Diagnosis (1) Acute opioid withdrawal: Status: Acute Code(s): F11.23 - Opioid dependence with withdrawal Medications at Discharge Home Medications omeprazole 40 mg capsule,delayed release 40 mg PO DAILY stomach 12/14/21 bupropion HCl 150 mg 24 hr tablet, extended release 150 mg PO DAILY depression 12/18/21 gabapentin 300 mg capsule 300 mg PO TIDCM nerve pain 12/18/21 nicotine 21 mg/24 hr daily transdermal patch 21 mg transdermal DAILY 30 days #30 ea 12/21/21 Hospital Course Operations None Procedures None Summary of Care Provided Minutes Spent on Discharge: 35 Hospital Course: 56-year-old male with past medical history of polysubstance use, chronically uses IV fentanyl about one quarter to half a gram mixed with heroin and methamphetamine. His last use was a day prior to admission. Patient is also a chronic smoker. He comes in requesting for medical stabilization. He admits to having shakes, tremors, feels restless and having cold/generalized muscle aches. He also has disorganized thought with delusions. He however denied hallu cinations. He was admitted to the [facility] floor and managed on the Subutex withdrawal protocol. Patient continued to improve. He was seen by the addiction social work and had an IUP with Jeaneth. Patient was discharged to follow-up with the primary care doctor as well as with Jeaneth in the outpatient. Physical Exam Narrative Physical exam: General: Alert, Oriented x3, Cooperative, cachectic, evidence of severe malnutrition HEENT: Atraumatic Oral: Moist Mucosa Neck: Supple Lungs: Clear to auscultation Cardiovascular: HS I+II, regular, no murmurs Abdomen: Bowel Sounds Present, Soft, Non Tender Extremities: No edema Medical Records Data Medical Nutrition Assessment Dietitian: Malnutrition Criteria Met Start: 12/18/21 16:22 Freq: Status: Active Protocol: Document 12/18/21 16:22 RMA (Rec: 12/18/21 16:22 RMA [id number]) Nutrition Malnutrition Evidence of Malnutrition Exists Yes Malnutrition (severe): Social/Behavioral/ Environmental Evidenced By Suboptimal Energy Intake ( Severe),Weight Loss (Severe) Clinical Problem Chronic Disease or Condition Related Malnutrition Etiology Severe protein-calorie malnutrition in the context of social circumstance related to substance abuse and inadequate oral intake Signs/Symptoms as evidenced by ~9-10% wt loss x past 6 months and PO meeting less than 50% estimated nutrition needs x past 3 months Status Active Problem Recommendation Dietitian Recommendations/Changes Continue Regular diet with snacks between meals as ordered. Continue 120 ml ensure enlive with medpass 4 times per day. Will add 240ml ensure clear with breakfast and magic cup BID w/ lunch and dinner for extra calories/protein/ nutrients as tolerated. Weight / BMI Weight Weight: 57.5 kg Body Mass Index (BMI) 21.1 ABG / Lab / Microbiology Data Result Diagrams: 12/18/21 11:45 12/19/21 09:19 Laboratory: Laboratory Results - last 24 hr 12/18/21 11:45: Diff Path Review Reviewed Microbiology: Microbiology 12/18/21 12:47 Nasal Secretion SARS-CoV-2 Antigen (Rapid) - Final D/C Instructions Discharge Diet: No restrictions Weight Bearing Status: Weight bearing as tolerated Meaningful Use Info Meaningful Use Diagnoses (Choose all that apply): None applicable Discharge Plan Admission Admit Date/Time: 12/18/21 12:36 Primary Reason for Your Visit: Acute opiate withdrawal Attending Provider: Maryjane Carcamo Primary Care Provider: Allison Jane Consulting Providers: Braydon Ribera Discharge Orders/Prescriptions Prescriptions: New nicotine 21 mg/24 hr Patch 24 Hour 21 mg transdermal DAILY 30 Days Qty: 30 0RF Continued omeprazole 40 mg capsule,delayed release(DR/EC) 40 mg PO DAILY gabapentin 300 mg capsule 300 mg PO TIDCM Label Comments: TAKE 1 CAPSULE BY MOUTH 4 TIMES DAILY AT 8:30AM, 12 NOON, 2:30PM AND 9:30PM. bupropion HCl 150 mg tablet extended release 24 hr 150 mg PO DAILY Label Comments: TAKE 1 TABLET BY MOUTH ONCE DAILY Referrals / Follow Up: Allison Jane MD [Primary Care Provider] - In 1 Week Disposition Disposition (needs filled in before D/C Order can be placed): Home, Self Care Charges/Coding Visit Charges Inpatient E&M: 82685 Disch Hosp
== END 2021-12-21 08:04 | disposition home or self-care (01) | DRG 773 ==
LOC: ED 12:11 → MS3 12:57
PROVIDERS: Admitting Provider Internal Medicine; Emergency Provider Student in an Organized Health Care Education/Training Program; PCP Internal Medicine; Visit Provider Internal Medicine
DX: F11.23 Opioid dependence with withdrawal (principal); E43 Unspecified severe protein-calorie malnutrition; F15.10 Other stimulant abuse, uncomplicated; F17.210 Nicotine dependence, cigarettes, uncomplicated; K21.9 Gastro-esophageal reflux disease without esophagitis; E87.6 Hypokalemia; F41.9 Anxiety disorder, unspecified; F32.A Depression, unspecified; Z68.21 Body mass index [BMI] 21.0-21.9, adult; Z79.899 Other long term (current) drug therapy
CPT/HCPCS: 36415; 80053; 80307; 82077; 83735; 85025; 85610; 87811; 96372; 97802; 99218; 99283; 99406; G0378

== ENCOUNTER 2022-10-08 19:28 | Emergency (ER) | payer MEDICAID, SELFPAY ==
[2022-10-08 19:29] VITALS: BP 168/91; PULSE 90; RESP 18; TEMP 37.3; O2SAT 96; BMI 25.0
[2022-10-08] MEDS: Acetaminophen 500 MG Tablet 1000 MG PO (21:50)
[2022-10-08] MEDS: 0.9% Normal Saline 1,000 ML 150 ML IV (21:57)
[2022-10-08 22:01] VITALS: BP 150/83; PULSE 80; RESP 22; O2SAT 94
[2022-10-08 22:05] LABS: Absolute Lymphocyte Count 2.17 X10^3/uL (0.83-4.51); Absolute Neutrophil Count 20.2 X10^3/uL (2.0-7.7); Basophil# 0.12 X10^3/uL; Basophil% 0.5 % (0-1); Eosinophil# 0.04 X10^3/uL; Eosinophils% 0.2 % (0-5); Hematocrit 35.1 % (40-54); Lymphocyte # 2.17 X10^3/ul (0.83-4.51); Lymphocyte % 8.6 % (19-41); Mean Corp Hgb Conc 34.2 g/dL (32-36); Mean Platelet Vol. 8.6 fl (6.2-12.0); Monocyte# 2.36 X10^3/uL; Monocyte% 9.3 % (0-10); NRBC Flagged by Analyzer 0 % (0-5); Neutrophil # 20.19 X10^3/uL (2.7-7.7); Neutrophil % 79.7 % (47-70); POSITIVE DIFFERENTIAL YES; Platelet Count 630 K/mm3 (150-450); RBC Distribution Width CV 13.6 % (11.6-14.6); RBC Distribution Width SD 40.6 fl (35.1-43.9); Red Blood Count 4.28 M/mm3 (4.6-6.2); White Blood Count 25.3 K/mm3 (4.4-11.0)
[2022-10-08 22:32] LABS: Differential Indicated SCAN CRITERIA MET
[2022-10-08 22:33] LABS: AST(SGOT) 26 U/L (15-37); Alanine Aminotransfer ALT/SGPT 23 U/L (16-61); Albumin, Serum 1.9 g/dL (3.2-5.0); Alkaline Phosphatase 125 U/L (45-117); Anion Gap 10 (5-15); BUN 8 mg/dL (7-18); BUN/Creat Ratio 13.4 RATIO (10-20); Bilirubin, Direct 0.38 mg/dL (0.00-0.30); Calcium,Total 8.5 mg/dL (8.5-10.1); Chloride 92 mmol/L (98-107); EST Glomerular Filtration Rate 149 mL/min (>60); Est Glom Filt Rate - Afr Amer 180 mL/min (>60); Estimated Creatinine Clearance 118.16 ml/min; Globulin 5.3 g/dL (2.2-4.2); Glucose 113 mg/dL (74-106); Potassium 2.6 mmol/L (3.5-5.1); Protein, Total 7.2 g/dL (6.4-8.2); Sodium Level 131 mmol/L (136-145); Troponin-I HS 9 pg/mL (3.0-78.0)
[2022-10-08 22:34] LABS: Anisocytosis RARE; Differential Comment SEE COMMENTS; Platelet Estimate MOD INC (ADEQ); Red Cell Morphology N CHROM NORMAL (NORM C&C); Toxic Granulation 2+
--- NOTE | 2022-10-08 22:43 | RAD_ITS ---
STUDY: X-RAY CHEST REASON FOR EXAM: Male, 56 years old. Cough. Fever. Shortness of breath. TECHNIQUE: Single AP portable view of the chest. COMPARISON: None. FINDINGS: Increased density at the right lung base suggesting pleural effusion and associated infiltrate. The lungs are otherwise clear. No pneumothorax. Normal size heart. Normal mediastinum and cyrus. Normal visualized pulmonary arteries. Normal visualized aortic arch and descending thoracic aorta. Normal visualized thoracic spine. Anterior fusion of lower cervical spine. Normal visualized ribs, clavicles, and shoulders. There is no demonstrated abnormality of the visualized soft tissue structures of the upper abdomen. RAD/Chest 1 View (Portable) IMPRESSION: Probable right lower lobe pneumonia with pleural effusion. Electronically Signed: Jere Goodwin DO at 22:59 EDT ,
--- NOTE | 2022-10-08 22:47 | CT_ITS ---
EXAM: CT ANGIOGRAPHY CHEST WITHOUT AND WITH INTRAVENOUS CONTRAST CLINICAL INDICATION: pain, pneumonia, elevated d-dimer TECHNIQUE: Helically acquired angiography images were obtained of the chest without and with intravenous contrast. This CT exam was performed using one or more of the following dose reduction techniques: automated exposure control, adjustment of the mA and/or kV according to patient size, and/or use of iterative reconstruction technique. This report was created using [employer] report generation technology. MIP reconstructed images were created and reviewed. CONTRAST: 100 cc of Isovue 370 IV. RADIATION DOSE: CTDIvol = 10.19 mGy, DLP = 321.54 mGy-cm. COMPARISON: None. FINDINGS: PULMONARY ARTERIES: Unremarkable. Normal in caliber. No evidence of pulmonary embolism. AORTA: Unremarkable. Normal in caliber. No evidence of dissection. GREAT VESSELS OF AORTIC ARCH: Unremarkable. Normal in caliber. No evidence of dissection. LUNGS AND PLEURAL SPACES: Moderate multiloculated pleural fluid collections in the right lower hemithorax with associated subsegmental atelectasis in the right middle and lower lobes. Small amount of fluid loculated in the right major fissure. No mass. No pneumothorax. HEART: Unremarkable. Heart size is normal. No pericardial effusion. No signs of right heart strain, ratio of right ventricle to left ventricle measures less than 1. MEDIASTINUM: Unremarkable. No mediastinal or hilar adenopathy. Esophagus is unremarkable. No hiatal hernia. THYROID: Unremarkable. No thyroid lesions. BONES/JOINTS: Unremarkable. No suspicious lytic or blastic abnormality. CT/CTA Chest W/WO Contrast IMPRESSION: 1. No pulmonary embolism or dissection. 2. Moderate multiloculated pleural fluid collections in the right lower hemithorax with associated subsegmental atelectasis in the right middle and lower lobes. Small amount of fluid loculated in the right major fissure. Electronically Signed: Frank Baumann MD at 0:03 EDT ,
[2022-10-08] MEDS: Ondansetron 4 MG/2 ML Vial IV (23:26)
[2022-10-08] MEDS: Morphine 4 MG/ML Syringe IV (23:26)
[2022-10-08] MEDS: levoFLOXacin IV 750 MG/150 ML BAG 100 MG IV (23:48)
[2022-10-08] MEDS: Potassium Chloride Oral Tablet 20 MEQ 40 MEQ PO (23:48)
[2022-10-08 23:53] VITALS: BP 138/71; PULSE 86; RESP 16; TEMP 37; O2SAT 93
[2022-10-09 00:05] LABS: Mucous, Urine 0 SEEN /hpf (<or=2+); Red Blood Cells-Urine 0 SEEN /hpf (0-5); Squamous Epithelial Cells - UA 0 SEEN /hpf (0-5); White Blood Cells 0 SEEN /hpf (0-5)
[2022-10-09 00:08] LABS: Color, Urine Yellow (Yellow); Glucose, Dipstick Normal (Normal); Ketone-Dipstick Negative (Negative); Leukocyte Esterase-Dipstick Negative /ul (Negative); Nitrite-Dipstick Negative (Negative); Occult Blood-Urine Negative /ul (Negative); Protein-Dipstick Negative (Negative); Specific Gravity, Urine 1.005 (1.002-1.030); Urine Bilirubin Dipstick Negative (Negative); Urine Clarity Clear (Clear); Urine Urobilinogen 4 mg/dl (Normal)
[2022-10-09 00:19] LABS: Bacteria 1+ /hpf (None Seen)
--- NOTE | 2022-10-09 00:29 | EDS_ITS ---
HPI History of Present Illness Chief Complaint: Shortness of Breath Detail of Chief Complaint: Short of breath, fever, chest pain Informant: patient Onset/Context/Timing Onset: Days Context: Gradual Onset Current Severity: Moderate Maximum Severity: Moderate Narrative Narrative: Patient presents with right lateral lower rib pain with mild cough that started early in the week. He complains of body aches. He now presents on Monday evening complaining of fever for the past 2 days and decreased p.o. intake. PFSH PFSH Medical History Anxiety Depression GERD (gastroesophageal reflux disease) Heroin abuse Methamphetamine abuse Smoker Substance abuse Home Medications omeprazole 40 mg capsule,delayed release 40 mg PO DAILY stomach 12/14/21 [History Last Taken 12/16/21] gabapentin 300 mg capsule 300 mg PO TIDCM nerve pain 12/18/21 [History Last Taken 12/17/21] amlodipine 5 mg tablet 5 mg PO DAILY 10/08/22 [History Last Taken Unknown] Allergy/AdvReac Type Severity Reaction Status Date / Time No Known Allergies Allergy Verified 10/08/22 19:29 Surgical History H/O hernia repair H/O neck surgery Social History Smoking Status: Current every day smoker tobacco type: cigarettes ROS ROS ED Constitutional Constitutional ED: Reports chills and fever(s) Eyes Eyes: Denies change in vision or discharge from eye(s) ENT ENT ED: Denies discharge from eye(s), rhinorrhea or sore throat Cardiovascular Cardiovascular: Reports chest pain; Denies palpitations Respiratory/Chest Respiratory/Chest: Reports cough and dyspnea Gastrointestinal Gastrointestinal: Denies abdominal pain, nausea or vomiting Genitourinary Genitourinary ED: Denies dysuria Musculoskeletal Musculoskeletal: Denies back pain or extremity pain Integumentary Denies Abrasions or rash Neurologic Neurologic: Reports weakness; Denies headache(s) Psychiatric Psychiatric: Denies anxiety or depression Allergic/Immunologic Allergic/Immunologic ED: Denies lip swelling or urticaria EXAM Physical Exam Const Vital Signs: 10/08/22 19:29 10/08/22 22:01 10/08/22 23:53 Temperature 99.2 F H 98.6 F Temperature Source Temporal Temporal Pulse Rate 90 80 86 Respiratory Rate 18 22 H 16 Blood Pressure 168/91 H 150/83 H 138/71 H Blood Pressure Mean 116 105 93 Pulse Ox 96 94 93 Oxygen Delivery Method Room Air Room Air Room Air 10/09/22 01:10 10/09/22 01:22 10/09/22 02:34 Temperature 98.1 F 98.7 F Temperature Source Oral Temporal Pulse Rate 67 76 Respiratory Rate 20 H 16 Blood Pressure 126/75 H 127/69 H 159/89 H Blood Pressure Mean 92 88 112 Pulse Ox 98 98 Oxygen Delivery Method Room Air Room Air Positive well nourished and well developed General Appearance ED: well developed HEENT Reports normocephalic and head/scalp atraumatic Eyes PERRL and EOMs intact bilaterally Neck supple Chest Wall inspection of chest normal and palpation of chest normal Resp normal respiratory effort Resp Narrative: Mildly diminished breath sounds right base. No wheezing appreciated. 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 EKG obtained to evaluate for cardiac arrhythmia/ischemia. Labwork obtained to evaluate for leukocytosis, anemia, and electrolyte derangement. Chest x-ray obtained to evaluate for acute lung pathology, cardiac size, or mediastinal abnormality. Patient given Tylenol for low-grade fever. IV fluids initiated. Lab Data Attestation: I reviewed the patient's lab results. Labs: Laboratory Results - last 24 hr 10/08/22 10/08/22 10/08/22 21:54 21:54 21:54 WBC 25.3 H RBC 4.28 L Hgb 12.0 L Hct 35.1 L MCV 82.0 MCH 28.0 MCHC 34.2 RDW Std Deviation 40.6 RDW Coeff of Arnulfo 13.6 Plt Count 630 H MPV 8.6 Immature Gran % (Auto) 1.700 H Neut % (Auto) 79.7 H Lymph % (Auto) 8.6 L Searcy % (Auto) 9.3 Eos % (Auto) 0.2 Baso % (Auto) 0.5 Absolute Neuts (auto) 20.2 H Absolute Lymphs (auto) 2.17 Nucleated RBC % 0 Differential Comment SEE COMMENTS Diff Path Review May foll Toxic Granulation 2+ Platelet Estimate MOD INC RBC Morphology N CHROM Anisocytosis RARE D-Dimer Quant (PE/DVT) 4.50 H* Sodium 131 L Potassium 2.6 L* Chloride 92 L Carbon Dioxide 29.0 Anion Gap 10 BUN 8 Creatinine 0.60 L Estim Creat Clear Calc 118.16 Est GFR (MDRD) Af Amer 180 Est GFR (MDRD) Non-Af 149 BUN/Creatinine Ratio 13.4 Glucose 113 H Calcium 8.5 Total Bilirubin 0.60 Direct Bilirubin 0.38 H AST 26 ALT 23 Alkaline Phosphatase 125 H Troponin I High Sens 9 Total Protein 7.2 Albumin 1.9 L Globulin 5.3 H Urine Color Urine Clarity Urine pH Ur Specific Mildred Urine Protein Urine Glucose (UA) Urine Ketones Urine Occult Blood Urine Nitrite Urine Bilirubin Urine Urobilinogen Ur Leukocyte Esterase Urine RBC Urine WBC Ur Squamous Epith Cells Urine Bacteria Urine Mucus 10/08/22 23:58 WBC RBC Hgb Hct MCV MCH MCHC RDW Std Deviation RDW Coeff of Arnulfo Plt Count MPV Immature Gran % (Auto) Neut % (Auto) Lymph % (Auto) Searcy % (Auto) Eos % (Auto) Baso % (Auto) Absolute Neuts (auto) Absolute Lymphs (auto) Nucleated RBC % Differential Comment Diff Path Review Toxic Granulation Platelet Estimate RBC Morphology Anisocytosis D-Dimer Quant (PE/DVT) Sodium Potassium Chloride Carbon Dioxide Anion Gap BUN Creatinine Estim Creat Clear Calc Est GFR (MDRD) Af Amer Est GFR (MDRD) Non-Af BUN/Creatinine Ratio Glucose Calcium Total Bilirubin Direct Bilirubin AST ALT Alkaline Phosphatase Troponin I High Sens Total Protein Albumin Globulin Urine Color Yellow Urine Clarity Clear Urine pH 7.0 Ur Specific Mildred 1.005 Urine Protein Negative Urine Glucose (UA) Normal Urine Ketones Negative Urine Occult Blood Negative Urine Nitrite Negative Urine Bilirubin Negative Urine Urobilinogen 4 H Ur Leukocyte Esterase Negative Urine RBC 0 SEEN Urine WBC 0 SEEN Ur Squamous Epith Cells 0 SEEN Urine Bacteria 1+ Urine Mucus 0 SEEN Radiography Chest X-Ray - ED: 1 View, Read by ED Physician and Right Infiltrate Diagnostic Testing: Clinical Impression(s) from Imaging Studies Chest X-Ray 10/08/22 22:43 IMPRESSION: Probable right lower lobe pneumonia with pleural effusion. Electronically Signed: Jere Goodwin DO at 22:59 EDT , Chest CTA 10/08/22 22:47 IMPRESSION: 1. No pulmonary embolism or dissection. 2. Moderate multiloculated pleural fluid collections in the right lower hemithorax with associated subsegmental atelectasis in the right middle and lower lobes. Small amount of fluid loculated in the right major fissure. 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 CBC reveals a white count of 25.3 with 79% neutrophils. Hemoglobin is slightly low at 12.0. Platelet count is elevated at 630,000. Chemistry studies reveal a sodium of 131, potassium of 2.6, chloride 92. His potassium is replaced orally and he is receiving IV fluids. Glucose is 113. LFTs are largely unremarkable. Urinalysis is normal. D-dimer is elevated at 4.50. Portable chest x-ray reveals a right lower lobe infiltrate. Patient is started on Levaquin and sent for CTA of the chest. He did receive a dose of morphine and Zofran prior to CT for pain. CTA of the chest returns with no evidence of pulmonary embolism. There are moderate multiloculated pleural fluid collections in the right lower hemothorax with atelectasis in the right middle and lower lobes. I reviewed the images with our hospitalist. There is concern that these may represent empyemas and will need to be drained by CT surgery. Vancomycin has been added. Patient was discussed with Dr. Soto at [facility]. Patient has been accepted in transfer. An additional dose of p.o. potassium has been given. I did specifically asked the patient about any recent drug use due to concern for septic emboli causing the fluid collections in his lungs. He denies any drug use for at least 6 months. Discharge Plan Triage Chief Complaint: Shortness of Breath Other Complaint: Abd Pain Chest Pain Fever ED Provider: Tammy Vyas Dx/Rx/DC Orders Clinical Impression: Pneumonia, Empyema Prescriptions: No Action omeprazole 40 mg capsule,delayed release(DR/EC) 40 mg PO DAILY gabapentin 300 mg capsule 300 mg PO TIDCM Label Comments: TAKE 1 CAPSULE BY MOUTH 4 TIMES DAILY AT 8:30AM, 12 NOON, 2:30PM AND 9:30PM. amlodipine 5 mg tablet 5 mg PO DAILY Label Comments: TAKE 1 TABLET BY MOUTH ONCE DAILY Primary Care Provider: Allison Jane Referrals: Allison Jane MD [Primary Care Provider] - Disposition Disposition: Acute Care Hospital Discharge Location: [facility]
[2022-10-09 01:10] VITALS: BP 126/75
[2022-10-09 01:22] VITALS: BP 127/69; PULSE 67; RESP 20; TEMP 36.7; O2SAT 98
[2022-10-09] MEDS: Vancomycin IV 1,000 MG/200 ML BAG 200 MG IV (01:24)
[2022-10-09] MEDS: Potassium Chloride Oral Tablet 20 MEQ 40 MEQ PO (02:28)
[2022-10-09] MEDS: Ondansetron 4 MG/2 ML Vial IV (02:29)
[2022-10-09] MEDS: HYDROmorphone 0.5 MG/0.5 ML SYRINGE IV ×2 (02:31→04:45)
[2022-10-09 02:34] VITALS: BP 159/89; PULSE 76; RESP 16; TEMP 37.1; O2SAT 98
[2022-10-09 03:05] VITALS: BP 131/94
[2022-10-09] MEDS: 0.9% Normal Saline 1,000 ML 150 ML IV (04:46)
[2022-10-09 04:50] VITALS: BP 152/91; PULSE 72; RESP 18; TEMP 36.4; O2SAT 96
[2022-10-09 06:49] LABS: Anion Gap 4 (5-15); BUN 8 mg/dL (7-18); Calcium,Total 8.5 mg/dL (8.5-10.1); Chloride 99 mmol/L (98-107); Creatinine, Serum 0.61 mg/dL (0.70-1.30); EST Glomerular Filtration Rate 143 mL/min (>60); Est Glom Filt Rate - Afr Amer 173 mL/min (>60); Estimated Creatinine Clearance 116.22 ml/min; Glucose 133 mg/dL (74-106); Potassium 3.2 mmol/L (3.5-5.1); Sodium Level 133 mmol/L (136-145)
[2022-10-09 06:54] VITALS: BP 152/81; PULSE 72; RESP 18; TEMP 36.8; O2SAT 96
[2022-10-09 07:00] LABS: Absolute Lymphocyte Count 1.96 X10^3/uL (0.83-4.51); Absolute Neutrophil Count 18.7 X10^3/uL (2.0-7.7); Basophil# 0.16 X10^3/uL; Basophil% 0.7 % (0-1); Eosinophil# 0.02 X10^3/uL; Eosinophils% 0.1 % (0-5); Hematocrit 41.4 % (40-54); Hemoglobin 13.4 g/dL (13.0-16.5); Lymphocyte # 1.96 X10^3/ul (0.83-4.51); Lymphocyte % 8.5 % (19-41); Mean Corp Hgb Conc 32.4 g/dL (32-36); Mean Corpuscular Hgb 27.7 pg (27.0-32.0); Mean Corpuscular Volume 85.5 fL (80-94); Monocyte# 1.84 X10^3/uL; NRBC Flagged by Analyzer 0 % (0-5); Neutrophil # 18.65 X10^3/uL (2.7-7.7); Neutrophil % 80.8 % (47-70); POSITIVE DIFFERENTIAL YES; Platelet Count 546 K/mm3 (150-450); RBC Distribution Width CV 13.6 % (11.6-14.6); RBC Distribution Width SD 42.6 fl (35.1-43.9); Red Blood Count 4.84 M/mm3 (4.6-6.2); White Blood Count 23.1 K/mm3 (4.4-11.0)
[2022-10-09 07:14] LABS: Differential Indicated SCAN CRITERIA MET
[2022-10-09 07:50] LABS: Differential Comment SCANNED
[2022-10-11 09:43] LABS: Pathologist Review Reviewed
[2022-10-12 10:38] LABS: Pathologist Review Reviewed
== END 2022-10-09 06:55 | disposition short-term general hospital (02) ==
PROVIDERS: Emergency Provider Emergency Medicine; PCP Internal Medicine; Visit Provider Emergency Medicine
DX: J18.9 Pneumonia, unspecified organism (principal); J86.9 Pyothorax without fistula; F17.210 Nicotine dependence, cigarettes, uncomplicated; K21.9 Gastro-esophageal reflux disease without esophagitis; Z79.899 Other long term (current) drug therapy
CPT/HCPCS: 36415; 71045; 71275; 80048; 80076; 81001; 84484; 85025; 85379; 87040; 87428; 93005; 96365; 96366; 96367; 96375; 96376; 99285; J7030; J7050; Q9967; A4216; J2405

== ENCOUNTER 2022-11-16 17:28 | Emergency (ER) | payer MEDICAID, SELFPAY ==
[2022-11-16 17:28] VITALS: BP 178/95; PULSE 73; RESP 14; TEMP 36.4; O2SAT 99; BMI 22.4
--- NOTE | 2022-11-16 17:37 | EKG12_ITS ---
Test Reason : Blood Pressure : / mmHG Vent. Rate : 063 BPM Atrial Rate : 063 BPM P-R Int : 176 ms QRS Dur : 100 ms QT Int : 436 ms P-R-T Axes : 038 -09 043 degrees QTc Int : 446 ms Normal sinus rhythm with sinus arrhythmia Normal ECG Confirmed by PABLITO ROBLES, FREEMAN ([id number]), food expeditor ONEIDA YUN ([id number]) on 11/18/2022 9:27:24 AM Referred By: PL Confirmed By:FREEMAN KENNEY MD
--- NOTE | 2022-11-16 18:25 | EX.ED.SAOD ---
HPI History of Present Illness Chief Complaint: Overdose Narrative Narrative: 57-year-old male presenting with opioid overdose. He states he was doing fentanyl. He was found down in received 2 doses of Narcan. He is awake and alert in no distress. Patient states he does not have any pain. He feels well. He does not have any chest pain or shortness of breath. He is ambulatory around the room. [facility] Medical History Anxiety Depression GERD (gastroesophageal reflux disease) Heroin abuse Methamphetamine abuse Smoker Substance abuse Home Medications omeprazole 40 mg capsule,delayed release 40 mg PO DAILY stomach 12/14/21 [History Last Taken 12/16/21] gabapentin 300 mg capsule 300 mg PO TIDCM nerve pain 12/18/21 [History Last Taken 12/17/21] metoprolol succinate 50 mg tablet,extended release 24 hr 50 mg PO DAILY 11/16/22 [History Last Taken Unknown] Allergy/AdvReac Type Severity Reaction Status Date / Time No Known Allergies Allergy Verified 11/16/22 17:32 Surgical History H/O hernia repair H/O neck surgery Social History Smoking Status: Current every day smoker tobacco type: cigarettes ROS ROS ED Constitutional Constitutional ED: Denies chills, fever(s) or sweats Eyes Eyes: Denies blurry vision or change in vision ENT ENT ED: Denies ear pain or sore throat Cardiovascular Cardiovascular: Denies chest pain, palpitations or racing heartbeat Respiratory/Chest Respiratory/Chest: Denies cough, dyspnea or sputum Gastrointestinal Gastrointestinal: Denies abdominal pain, constipation, diarrhea, nausea or vomiting Genitourinary Genitourinary ED: Denies dysuria, hematuria or urinary frequency Musculoskeletal Musculoskeletal: Denies arthralgias, myalgias or neck pain Integumentary Denies abscess, Abrasions or rash Neurologic Neurologic: Denies headache(s), paresthesias or weakness Psychiatric Psychiatric: Denies anxiety, depression, suicidal ideation or suicidal thoughts Endocrine Endocrinology: Denies polydipsia or polyuria EXAM Physical Exam Const Vital Signs: 11/16/22 17:28 Temperature 97.6 F L Temperature Source Temporal Pulse Rate 73 Respiratory Rate 14 Blood Pressure 178/95 H Blood Pressure Mean 122 Pulse Ox 99 Oxygen Delivery Method Room Air Positive well nourished General Appearance ED: NAD; Negative for pallor HEENT Reports moist mucous membranes atraumatic Eyes PERRL and EOMs intact bilaterally General Eye ED: Negative for pale conjunctiva or scleral icterus Lymph Lymphatic: no lymphadenopathy noted Chest Wall inspection of chest normal Resp normal respiratory effort Auscultation: Negative for rales, rhonchi or wheezes Cardio regular rate and regular rhythm GI soft to palpation Neuro oriented x3 and CN's II-XII intact bilaterally Sensorium / Orientation: alert Psych mental status grossly normal and thought process normal Skin General Skin Exam: Negative for jaundice or pallor MDM MDM MDM Narrative Medical decision making narrative: Patient presenting after opioid overdose. He admits to doing fentanyl. He feels well now. He received Narcan x2 about an hour ago. He is walking around the room. He did have a protocol EKG performed on my interpretation this shows a normal sinus rhythm with a ventricular rate of 62 bpm without sign of ischemic change. He states he does not want to stay. He does not want a blood work or imaging. He was offered detox but he declines. Patient discharged in stable condition. Impression: 1. Fentanyl overdose Lab Data Attestation: I reviewed the patient's lab results. Discharge Plan Triage Chief Complaint: Overdose ED Provider: Ernesto Zamorano Dx/Rx/DC Orders Instructions: ED Opiate Abuse, ED Overdose, Opiate Prescriptions: No Action omeprazole 40 mg capsule,delayed release(DR/EC) 40 mg PO DAILY gabapentin 300 mg capsule 300 mg PO TIDCM Label Comments: TAKE 1 CAPSULE BY MOUTH 4 TIMES DAILY AT 8:30AM, 12 NOON, 2:30PM AND 9:30PM. metoprolol succinate 50 mg tablet extended release 24 hr 50 mg PO DAILY Primary Care Provider: Allison Jane Referrals: Allison Jane MD [Primary Care Provider] - Disposition Disposition: Home, Self Care
[2022-11-16 18:27] VITALS: BP 159/88
== END 2022-11-16 18:28 | disposition home or self-care (01) ==
PROVIDERS: Emergency Provider Student in an Organized Health Care Education/Training Program; PCP Internal Medicine; Visit Provider Student in an Organized Health Care Education/Training Program
DX: T40.414A Poisoning by fentanyl or fentanyl analogs, undetermined, initial encounter (principal); F17.210 Nicotine dependence, cigarettes, uncomplicated; Z79.899 Other long term (current) drug therapy
CPT/HCPCS: 93005; 99283